=== PATIENT | female | born 1955 | race Caucasian/White ===

== ENCOUNTER → 2017-11-23 | Outpatient (CLI) | payer OTHER | LOC: RAD 07:13 | DX: J44.9 Chronic obstructive pulmonary disease, unspecified (principal); J98.11 Atelectasis ==

== ENCOUNTER → 2018-10-20 | Outpatient (CLI) | payer OTHER | LOC: CAT 10-14 10:19 | DX: J43.9 Emphysema, unspecified (principal); J98.11 Atelectasis; N13.30 Unspecified hydronephrosis; R93.89 Abnormal findings on diagnostic imaging of other specified body structures ==